=== PATIENT | male | born 1995 | race Caucasian/White ===

== ENCOUNTER 2016-09-13 10:53 | Emergency (ER) | payer BC ==
[2016-09-13 10:59] VITALS: BP 121/53
--- NOTE | 2016-09-13 11:12 | UC ---
Throat Pain/Nasal Shar HPI - HPI Summary HPI Summary: Sore throat feverish and body aches for 24 hours feels like past episodes of strep throat - History of Current Complaint Chief Complaint: UCRespiratory Stated Complaint: SORE THROAT,BODY ACHES,HEADACHE Time Seen by Provider: 09/13/16 11:10 Hx Obtained From: Patient Onset/Duration: Sudden Onset, Lasting Days - 1, Still Present Severity: Moderate Pain Intensity: 5 Pain Scale Used: 0-10 Numeric Cough: None Associated Signs & Symptoms: Positive: Fever - subjective - Allergies/Home Medications Allergies/Adverse Reactions: Allergies Allergy/AdvReac Type Severity Reaction Status Date / Time Prochlorperazine Allergy Severe See Comment Verified 11/17/15 15:27 [From Compazine] PMH/Surg Hx/FS Hx/Imm Hx Previously Healthy: Yes - Surgical History Surgical History: Yes Surgery Procedure, Year, and Place: Appendectomy 2009, hernia reduction 2009, bowel obstruction surgery , 2009. - Family History Known Family History: Positive: None Family History: no cardio vascular issues reported in family lineage - Social History Occupation: Employed Full-time - delivery associate Lives: With Family Alcohol Use: None Substance Use Type: None Smoking Status (MU): Never Smoked Tobacco Review of Systems Constitutional: Fever - subjective Skin: Negative Eyes: Negative ENT: Sore Throat Respiratory: Negative Cardiovascular: Negative Gastrointestinal: Negative Genitourinary: Negative Motor: Negative Neurovascular: Negative Musculoskeletal: Arthralgia, Myalgia Neurological: Negative Psychological: Negative All Other Systems Reviewed And Are Negative: Yes Physical Exam Triage Information Reviewed: Yes Appearance: Well-Appearing, No Pain Distress, Well-Nourished Vital Signs: Initial Vital Signs Temp 99.2 F 09/13/16 10:56 Pulse 106 09/13/16 10:56 Resp 18 09/13/16 10:56 BP 121/53 09/13/16 10:56 Pulse Ox 100 09/13/16 10:56 Vital Signs Reviewed: Yes Eye Exam: Normal Eyes: Positive: Conjunctiva Clear ENT Exam: Normal ENT: Positive: Normal ENT inspection, Hearing grossly normal, Pharyngeal erythema, TMs normal. Negative: Nasal congestion, Nasal drainage, Trismus, Muffled/hoarse voice Dental Exam: Normal Neck exam: Normal Neck: Positive: Supple, Nontender, No Lymphadenopathy Respiratory Exam: Normal Respiratory: Positive: Chest non-tender, Lungs clear, Normal breath sounds, No respiratory distress, No accessory muscle use Cardiovascular Exam: Normal Cardiovascular: Positive: RRR, No Murmur, Pulses Normal, Brisk Capillary Refill Musculoskeletal Exam: Normal Musculoskeletal: Positive: Strength Intact, ROM Intact, No Edema Neurological Exam: Normal Neurological: Positive: Alert, Muscle Tone Normal Psychological Exam: Normal Skin Exam: Normal Diagnostics - Laboratory Diagnostic Studies Completed/Ordered: RST (-) Throat Pain/Nasal Course/Dx - Course Assessment/Plan: Tylenol, ibuprofen rest increase fluids, follow with pcp prn - Differential Dx/Diagnosis Differential Diagnosis/HQI/PQRI: Laryngitis, Pharyngitis, Sinusitis, URI Provider Diagnoses: Viral Pharyngitis Discharge - Discharge Plan Condition: Stable Disposition: HOME Patient Education Materials: Acetaminophen (By mouth), Phenol (By mouth), Pharyngitis (ED), Viral Syndrome (ED) Referrals: Flaco Patrick MD [Primary Care Provider] - If Needed
== END 2016-09-13 11:51 | disposition home or self-care (01) ==
LOC: UCEAST 10:53
DX: J02.8 Acute pharyngitis due to other specified organisms (principal); R51 Headache; M79.1 Myalgia
CPT/HCPCS: 87651; 99201; G0463